=== PATIENT | female | born 1970 | race Caucasian/White ===

== ENCOUNTER 2019-07-17 11:27 | Emergency (ER) | payer SELFPAY ==
[~2019-07-17] VITALS: Ht 162 cm; Wt 85.2 kg
[~2019-07-17 11:27] MED LIST: BENZ100C18 PO; CEPH500C PO; CPR500T PO; DOXY100C2 PO; HCT25T PO; INSU100I14 SC; LEVAMIR INSULIN SC; LOVA20TA2 PO; MTF500T PO; NYST1POW15 TOP; RNT150T PO; [UNRECOGNIZED DRUG - OTHER] PO; estrogen; insulin pen
[2019-07-17] MEDS ORDERED: PROMETHAZINE INJ 25 MG/ML (PHENERGAN) AMP IVP ONE (11:45)
[2019-07-17] MEDS ORDERED: KETOROLAC 30 MG/ML VIAL IVP ONE (11:45)
[2019-07-17] MEDS ORDERED: NS IV 1000 ML 1,000 ML IV SCH (11:45)
--- NOTE | 2019-07-17 11:45 | ED General ---
General Chief Complaint: Dizziness/Syncope Stated Complaint: DIZZY / HEADACHE Nursing Triage Note: DIZZINESS ET LIGHT HEADED X1 WEEKS. SCHEDULED FOR A CT SCAN ON FRIDAY. VOMITING STARTING TODAY. Nursing Sepsis Screen: No Definite Risk Source of Information: Patient Exam Limitations: No Limitations History of Present Illness Date Seen by Provider: Jul 17, 2019 Time Seen by Provider: 11:43 Initial Comments To ER with c/o headache rated at 8/10 and dizziness x1 week. Is scheduled to have CT of the head on thursday 07/19. No trauma, no fevers. Timing/Duration: 1-2 Days Severity: Moderate Associated Systoms: Headaches Allergies and Home Medications Allergies Coded Allergies: Codeine (Unverified Allergy, Mild, 07/23/09) Penicillins (Unverified Allergy, Mild, 07/23/09) Uncoded Allergies: [id number] (SULFA (SULFONAMIDE ANTIBIOTICS)) (Allergy, Mild, 07/23/09) Home Medications Benzonatate 100 Mg Capsule, 1-2 EACH PO Q 4 - 6 HR PRN FOR COUGH Prescribed by: GENARO REID on 10/17/11943 Doxycycline Hyclate 100 Mg Capsule, 1 EACH PO BID FOR INFECTION Prescribed by: GENARO REID on 10/17/11943 Hydrochlorothiazide 25 Mg Tablet, 1 EACH PO DAILY, (Reported) Insulin Aspart 100 Unit/1 Ml Insuln.pen, 16 UNITS SC TID BEFORE MEALS, (Reported) Lovastatin 20 Mg Tablet, 1 EACH PO DAILY WITH SUPPER, (Reported) Meclizine HCl 25 Mg Tablet, 25 MG PO TID PRN for DIZZINESS Prescribed by: JOSUÉ GREEN on 07/17/19 1333 Metformin Hcl 500 Mg Tab, 1,000 MG PO BID, (Reported) [Levamir Insulin Pen] , 38 UNITS SC TID, (Reported) Patient Home Medication List Home Medication List Reviewed: Yes Review of Systems Review of Systems Constitutional: see HPI, dizziness EENTM: see HPI Respiratory: no symptoms reported Cardiovascular: no symptoms reported Genitourinary: no symptoms reported Skin: no symptoms reported Psychiatric/Neurological: See HPI, Headache Hematologic/Lymphatic: No Symptoms Reported Immunological/Allergic: no symptoms reported Past Vlbppqq-Lpzbbe-Yjnnmh Hx Patient Social History Alcohol Use: Denies Use Recreational Drug Use: Yes Drug of Choice: POT Smoking Status: Never a Smoker Recent Foreign Travel: No Contact w/Someone Who Travel: No Recent Infectious Disease Expo: No Immunizations Up To Date Date of Influenza Vaccine: Jun 11, 2011 Past Medical History Surgeries: Yes Section, Orthopedic, Tubal Ligation Respiratory: No Cardiac: No Headaches /Migraines Genitourinary: No Gastrointestinal: No Musculoskeletal: No Endocrine: Yes Diabetes, Insulin dep Cancer: No Psychosocial: No Integumentary: No Physical Exam Vital Signs Vital Signs - First Documented 07/17/19 11:32 Temp 36.7 Pulse 94 Resp 16 B/P (MAP) 173/83 (113) Pulse Ox 100 O2 Delivery Room Air Capillary Refill : Less Than 3 Seconds Height, Weight, BMI Height: '" Weight: lbs. oz. kg; 32.00 BMI Method:Stated General Appearance: No Apparent Distress, WD/WN Eyes: Bilateral Eye Normal Inspection, Bilateral Eye PERRL, Bilateral Eye Other (horizontal nystagmus noted) HEENT: PERRL/EOMI, TMs Normal, Normal ENT Inspection Neck: Full Range of Motion, Normal Inspection Respiratory: Normal Breath Sounds, No Accessory Muscle Use, No Respiratory Distress Cardiovascular: Regular Rate, Rhythm, Normal Peripheral Pulses Gastrointestinal: Normal Bowel Sounds, Non Tender, Soft Extremity: Normal Capillary Refill, Normal Inspection Neurologic/Psychiatric: Alert, Oriented x3 Skin: Normal Color, Warm/Dry Progress/Results/Core Measures Suspected Sepsis Recent Fever Within 48 Hours: No Infection Criteria Present: None New/Unexplained Altered Menta: No Sepsis Screen: No Definite Risk SIRS Temperature: Pulse: 94 Respiratory Rate: 16 Laboratory Tests 07/17/19 11:40: White Blood Count 12.1H Blood Pressure 173 /83 Mean: 113 Laboratory Tests 07/17/19 11:40: Creatinine 0.91, Platelet Count 430H, Total Bilirubin 0.2 Results/Orders Lab Results Laboratory Tests Test 07/17/19 11:40 07/17/19 12:48 Range/Units White Blood Count 12.1 H 4.3-11.0 10^3/uL Red Blood Count 4.44 4.35-5.85 10^6/uL Hemoglobin 11.9 11.5-16.0 G/DL Hematocrit 35 35-52 % Mean Corpuscular Volume 80 80-99 FL Mean Corpuscular Hemoglobin 27 25-34 PG Mean Corpuscular Hemoglobin Concent 34 32-36 G/DL Red Cell Distribution Width 14.0 10.0-14.5 % Platelet Count 430 H 130-400 10^3/uL Mean Platelet Volume 9.9 7.4-10.4 FL Neutrophils (%) (Auto) 56 42-75 % Lymphocytes (%) (Auto) 34 12-44 % Monocytes (%) (Auto) 8 0-12 % Eosinophils (%) (Auto) 2 0-10 % Basophils (%) (Auto) 1 0-10 % Neutrophils # (Auto) 6.8 1.8-7.8 X 10^3 Lymphocytes # (Auto) 4.1 H 1.0-4.0 X 10^3 Monocytes # (Auto) 1.0 0.0-1.0 X 10^3 Eosinophils # (Auto) 0.2 0.0-0.3 10^3/uL Basophils # (Auto) 0.1 0.0-0.1 10^3/uL Sodium Level 140 135-145 MMOL/L Potassium Level 4.5 3.6-5.0 MMOL/L Chloride Level 105 98-107 MMOL/L Carbon Dioxide Level 23 21-32 MMOL/L Anion Gap 12 5-14 MMOL/L Blood Urea Nitrogen 18 7-18 MG/DL Creatinine 0.91 0.60-1.30 MG/DL Estimat Glomerular Filtration Rate > 60 BUN/Creatinine Ratio 20 Glucose Level 109 H 70-105 MG/DL Calcium Level 9.4 8.5-10.1 MG/DL Corrected Calcium 9.2 8.5-10.1 MG/DL Total Bilirubin 0.2 0.1-1.0 MG/DL Aspartate Amino Transf (AST/SGOT) 19 5-34 U/L Alanine Aminotransferase (ALT/SGPT) 19 0-55 U/L Alkaline Phosphatase 60 40-136 U/L Total Protein 8.0 6.4-8.2 GM/DL Albumin 4.3 3.2-4.5 GM/DL Serum Test, Qualitative NEGATIVE NEGATIVE Urine Color YELLOW Urine Clarity SL CLOUDY Urine pH 5.5 5-9 Urine Specific [place] >=1.030 1.016-1.022 Urine Protein NEGATIVE NEGATIVE Urine Glucose (UA) NEGATIVE NEGATIVE Urine Ketones NEGATIVE NEGATIVE Urine Nitrite NEGATIVE NEGATIVE Urine Bilirubin NEGATIVE NEGATIVE Urine Urobilinogen 0.2 < = 1.0 MG/DL Urine Leukocyte Esterase TRACE NEGATIVE Urine RBC (Auto) 3+ H NEGATIVE Urine RBC 0-2 /HPF Urine WBC 2-5 /HPF Urine Squamous Epithelial Cells 2-5 /HPF Urine Crystals NONE /LPF Urine Bacteria FEW H /HPF Urine Casts NONE /LPF Urine Mucus NEGATIVE /LPF Urine Culture Indicated NO My Orders Orders - JOSUÉ GREEN CORE DRILLER Cbc With Automated Diff (07/17/19 11:35) Comprehensive Metabolic Panel (07/17/19 11:35) Ua Culture If Indicated (07/17/19 11:35) Ed Iv/Invasive Line Start (07/17/19 11:35) Hcg,Qualitative Serum (07/17/19 11:35) Ns Iv 1000 Ml (Sodium Chloride 0.9%) (07/17/19 11:45) Promethazine Injection (Phenergan Injec (07/17/19 11:45) Ct Angio Head/Neck (07/17/19 11:42) Ketorolac Injection (Toradol Injection) (07/17/19 11:45) Iohexol Injection (Omnipaque 350 Mg/Ml 1 (07/17/19 12:15) Received Contrast (Hold Metformin- Contr (07/17/19 12:15) Sodium Chloride Flush (Catheter Flush Sy (07/17/19 12:15) Ns (Ivpb) (Sodium Chloride 0.9% Ivpb Bag (07/17/19 12:15) Meclizine Tablet (Antivert Tablet) (07/17/19 13:00) Medications Given in ED Current Medications Medications Dose Ordered Sig/Syl Route Start Time Stop Time Status Last Admin Dose Admin Iohexol 100 ml ONCE ONCE IV 07/17/19 12:15 07/17/19 12:16 DC 07/17/19 12:44 75 ML Ketorolac Tromethamine 15 mg ONCE ONCE IVP 07/17/19 11:45 07/17/19 11:46 DC 07/17/19 11:48 15 MG Meclizine HCl 25 mg ONCE ONCE PO 07/17/19 13:00 07/17/19 13:01 DC 07/17/19 13:02 25 MG Promethazine HCl 25 mg ONCE ONCE IVP 07/17/19 11:45 07/17/19 11:46 DC 07/17/19 11:47 25 MG Sodium Chloride 10 ml NEEDED PRN IV 07/17/19 12:15 07/17/19 12:44 10 ML Sodium Chloride 100 ml ONCE ONCE IV 07/17/19 12:15 07/17/19 12:16 DC 07/17/19 12:44 80 ML Vital Signs/I&O 07/17/19 11:32 Temp 36.7 Pulse 94 Resp 16 B/P (MAP) 173/83 (113) Pulse Ox 100 O2 Delivery Room Air Capillary Refill : Less Than 3 Seconds Blood Pressure Mean: 113 POS Diagnostic Imaging Diagonstic Imaging: Xray, CT Comments NAME: [facility] REC#: [id number] PT STATUS: REG ER : 1970 PHYSICIAN: JOSUÉ GREEN APRN ADMIT DATE: 07/17/19/ER Draft POSDate of Exam:07/17/19 CT ANGIO HEAD/NECK PROCEDURE: CT angiography of the head and CT angiography of the neck with and without contrast. TECHNIQUE: Contiguous noncontrast images were obtained from the skull base through the vertex. After intravenous contrast administration, helical CT angiography of the neck was performed. Source data was reformatted into 3D MIP projections. Delayed post contrast acquisition was also obtained. Auto Exposure Controls were utilized during the CT exam to meet ALARA standards for radiation dose reduction. INDICATION: Lightheadedness, vomiting. COMPARISON: None available. FINDINGS: No intracranial hemorrhage. No intracranial mass, mass effect, midline shift, herniation, hydrocephalus, or extra-axial fluid collection. No definite CT evidence of an acute ischemic infarction. The paranasal sinuses are clear. The calvarium and extracalvarial soft tissues are unremarkable. No enhancing intracranial mass lesion. Muscles of mastication are unremarkable. Parapharyngeal fat is symmetric and well-maintained. The salivary glands are symmetric and unremarkable. The thyroid gland is unremarkable. No significant adenopathy within the neck. No apical pneumothorax. Scattered osseous degenerative changes without acute osseous abnormality. A three-vessel aortic arch is present. The large arterial structures of the head and neck are unremarkable without evidence of occlusion, aneurysm, pseudoaneurysm, or dissection. Large dural venous sinuses appear patent with the left asymmetrically small when compared to the right. IMPRESSION: No acute intracranial abnormality. Large arterial structures of the head and neck are unremarkable. Mild degenerative changes within the cervical spine. Dictated on workstation # [id number] Dict: 07/17/19 1256 Trans: 07/17/19 1305 [facility] [id number] Interpreted by: ZAYRA OLIVA MD Electronically signed by: Departure Impression Primary Impression: Vertigo Disposition: 01 HOME, SELF-CARE Condition: Stable Departure-Patient Inst. Decision time for Depature: 13:10 Referrals: [facility] [place]/Family) Primary Care Physician Patient Instructions: Vertigo (a Type of Dizziness) (DC) Scripts Meclizine HCl (Meclizine HCl) 25 Mg Tablet 25 MG PO TID PRN for DIZZINESS, #20 TAB Prov: JOSUÉ GREEN APRN 07/17/19 Work/School Note: Work Release Form Date Seen in the Emergency Department: Jul 17, 2019 Return to Work: Jul 19, 2019 JOSUÉ GREEN APRN Jul 17, 2019 11:45 POS
[2019-07-17 11:47] LABS: BASOPHILS # (AUTO) 0.1 10^3/uL (0.0-0.1); BASOPHILS % (AUTO) 1 % (0-10); EOSINOPHILS # (AUTO) 0.2 10^3/uL (0.0-0.3); EOSINOPHILS % (AUTO) 2 % (0-10); HEMATOCRIT 35 % (35-52); HEMOGLOBIN 11.9 G/DL (11.5-16.0); LYMPHOCYTES # (AUTO) 4.1 X 10^3 (1.0-4.0); LYMPHOCYTES % (AUTO) 34 % (12-44); MEAN CORPUSCULAR HEMOGLOBIN 27 PG (25-34); MEAN CORPUSCULAR HGB CONC 34 G/DL (32-36); MEAN CORPUSCULAR VOLUME 80 FL (80-99); MEAN PLATELET VOLUME 9.9 FL (7.4-10.4); MONOCYTES % (AUTO) 8 % (0-12); NEUTROPHILS # (AUTO) 6.8 X 10^3 (1.8-7.8); NEUTROPHILS % (AUTO) 56 % (42-75); PLATELET COUNT 430 10^3/uL (130-400); WHITE BLOOD COUNT 12.1 10^3/uL (4.3-11.0)
[2019-07-17 12:04] LABS: ALANINE AMINOTRANSFERASE 19 U/L (0-55); ALBUMIN 4.3 GM/DL (3.2-4.5); ALKALINE PHOSPHATASE 60 U/L (40-136); BILIRUBIN,TOTAL 0.2 MG/DL (0.1-1.0); BUN/CREATININE RATIO 20; CALCIUM 9.4 MG/DL (8.5-10.1); CARBON DIOXIDE 23 MMOL/L (21-32); CHLORIDE 105 MMOL/L (98-107); CREATININE SERUM 0.91 MG/DL (0.60-1.30); GFR ESTIMATED > 60; GLUCOSE 109 MG/DL (70-105); POTASSIUM 4.5 MMOL/L (3.6-5.0); SODIUM 140 MMOL/L (135-145)
[2019-07-17] MEDS ORDERED: IOHEXOL 350 MG/ML 100 ML (OMNIPAQUE 350) VIAL IV ONE (12:15)
[2019-07-17] MEDS ORDERED: HOLD METFORMIN - RECEIVED CONTRAST 20 ML VIAL IV SCH (12:15)
[2019-07-17] MEDS ORDERED: CATHETER FLUSH 10 ML SYR IV PRN (12:15)
[2019-07-17] MEDS ORDERED: NS 100 ML (IVPB) BAG IV ONE (12:15)
[2019-07-17] MEDS ORDERED: MECLIZINE 25 MG (ANTIVERT) TAB PO ONE (13:00)
--- NOTE | 2019-07-17 13:02 | NUR ---
TO ROOM TO GIVE MEDS IV FLUIDS NOT INFUSING UNABLE UNABLE TO FLUSH IV INFILITRATED . RESTARTED #22 R FOREARM.
--- NOTE | 2019-07-17 13:05 | Diagnostic Imaging Report ---
PROCEDURE: CT angiography of the head and CT angiography of the neck with and without contrast. TECHNIQUE: Contiguous noncontrast images were obtained from the skull base through the vertex. After intravenous contrast administration, helical CT angiography of the neck was performed. Source data was reformatted into 3D MIP projections. Delayed post contrast acquisition was also obtained. Auto Exposure Controls were utilized during the CT exam to meet ALARA standards for radiation dose reduction. INDICATION: Lightheadedness, vomiting. COMPARISON: None available. FINDINGS: No intracranial hemorrhage. No intracranial mass, mass effect, midline shift, herniation, hydrocephalus, or extra-axial fluid collection. No definite CT evidence of an acute ischemic infarction. The paranasal sinuses are clear. The calvarium and extracalvarial soft tissues are unremarkable. No enhancing intracranial mass lesion. Muscles of mastication are unremarkable. Parapharyngeal fat is symmetric and well-maintained. The salivary glands are symmetric and unremarkable. The thyroid gland is unremarkable. No significant adenopathy within the neck. No apical pneumothorax. Scattered osseous degenerative changes without acute osseous abnormality. A three-vessel aortic arch is present. The large arterial structures of the head and neck are unremarkable without evidence of occlusion, aneurysm, pseudoaneurysm, or dissection. Large dural venous sinuses appear patent with the left asymmetrically small when compared to the right. IMPRESSION: No acute intracranial abnormality. Large arterial structures of the head and neck are unremarkable. Mild degenerative changes within the cervical spine. Dictated by: Dictated on workstation # [id number]
[2019-07-17 13:08] LABS: BILIRUBIN,URINE NEGATIVE (NEGATIVE); CLARITY,URINE SL CLOUDY; COLOR,URINE YELLOW; GLUCOSE, URINE (UA) NEGATIVE (NEGATIVE); KETONES,URINE NEGATIVE (NEGATIVE); LEUKOCYTE ESTERASE ,URINE TRACE (NEGATIVE); NITRITE,URINE NEGATIVE (NEGATIVE); PH,URINE 5.5 (5-9); PROTEIN,URINE NEGATIVE (NEGATIVE)
[2019-07-17 13:16] LABS: BACTERIA,URINE FEW /HPF; RBC,URINE 0-2 /HPF
[2019-07-17] MEDS ORDERED: MECL-106 PO (13:33)
[2019-07-17 14:03] VITALS: BP 129/71
--- OUTSIDE RECORDS SUMMARY | 2019-08-12 10:49 | XMS REPORT | Continuity of Care Document ---
Demographics Preferred Language Unknown Marital Status Unknown Rastafari Affiliation Unknown Race Unknown Ethnic Group Unknown Author Organization Unknown Address Unknown Phone Unavailable Allergies Active Description Code Type Severity Reaction Onset Reported/Identified Relationship to Patient Clinical Status Yes codeine [id number] Drug Allergy Mild N/A 07/23/2009 Yes [id number] (SULFA (SULFONAMIDE ANTIBIOTI CS)) [id number] (SULFA (SULFONAMIDE ANTIBIOTICS)) Mild N/A 07/23/2009 Yes Penicillins [id number] Drug Aller gy Mild N/A 07/23/2009 Medications There is no data. Problems Date Dx Coded Attending Type Code Diagnosis Diagnosed By 07/21/2019 JOSUÉ GREEN APRN Ot E11 .9 TYPE 2 DIABETES MELLITUS WITHOUT COMPLIC 07/21/2019 JOSUÉ GREEN APRN Ot G43.909 MIGRAINE, UNSP, NOT INTRACTABLE, WITHOUT 07/21/2019 JOSUÉ GREEN APRN Ot R42 DIZZINESS AND GIDDINESS 07/21/2019 JOSUÉ GREEN APRN Ot R51 HEADACHE 07/21/2019 JOSUÉ GRENE APRN Ot Z79 .4 INTERMEDIATE (CURRENT) USE OF INSULIN 07/21/2019 JOSUÉ GREEN APRN Ot Z88 .0 ALLERGY STATUS TO PENICILLIN 07/21/2019 JOSUÉ GREEN APRN Ot Z88 .5 ALLERGY STATUS TO NARCOTIC AGENT STATUS 07/21/2019 JOSUÉ GREEN APRN Ot Z98.51 TUBAL LIGATION STATUS Procedures There is no data. Results Test Result Range CMP - 07/15/19 10:40 GLUCOSE 43 mg/dL 65-99 UREA NITROGEN (BUN) 23 mg/dL 7-25 CREATININE 0.80 mg/dL 0.50-1.10 eGFR NON-AFR. [place] 87 mL/min/1.73m2 > OR = 60 eGFR 101 mL/min/1.73m2 > OR = 60 BUN/CREATININE RATIO NOT APPLICABLE (calc) 6-22 SODIUM 141 mmol/L 135-146 POTASSIUM 4.3 mmol/L 3.5-5.3 CHLORIDE 106 mmol/L 98-110 CARBON DIOXIDE 24 mmol/L 20-32 CALCIUM 10.2 mg/dL 8.6-10.2 PROTEIN, TOTAL 7.9 g/dL 6.1-8.1 ALBUMIN 4.5 g/dL 3.6-5.1 GLOBULIN 3.4 g/dL (calc) 1.9-3.7 ALBUMIN/GLOBULIN RATIO 1.3 (calc) 1.0-2. 5 BILIRUBIN, TOTAL 0.2 mg/dL 0.2-1.2 ALKALINE PHOSPHATASE 68 U/L 33-115 AST 11 U/L 10-35 ALT 17 U/L 6-29 Complete blood count (CBC) with automate d white blood cell (WBC) differential - 07/17/19 11:40 Blood leukocytes automated count (number/volume) 12.1 10*3/uL 4.3-11.0 Blood erythrocytes automated count (number/volume) 4.44 10*6/uL 4.35-5.85 Venous blood hemoglobin measurement (mass/volume) 11.9 g/dL 11.5-16.0 Blood hematocrit (volume fraction) 35 % 35-52 Automated erythrocyte mean corpuscular volume 80 [ foz_us] 80-99 Automated erythrocyte mean corpuscular h emoglobin (mass per erythrocyte) 27 pg 25-34 Automated erythrocyte mean corpuscular h emoglobin concentration measurement (mass/volume) 34 g/dL 32-36 Automated erythrocyte distribution width ratio 14. 0 % 10.0- 14.5 Automated blood platelet count (count/volume) 430 10*3/uL 130-400 Automated blood platelet mean volume measurement 9.9 [foz_us] 7.4-10.4 Automated blood neutrophils/100 leukocytes 56 % 42-75 Automated blood lymphocytes/100 leukocytes 34 % 12-44 Blood monocytes/100 leukocytes 8 % 0-12 Automated blood eosinophils/100 leukocytes 2 % 0-10 Automated blood basophils/100 leukocytes 1 % 0-10 Blood neutrophils automated count (number/volume) 6.8 10*3 1.8-7.8 Blood lymphocytes automated count (number/volume) 4.1 10*3 1.0-4.0 Blood monocytes automated count (number/volume) 1. 0 10*3 0.0-1.0 Automated eosinophil count 0.2 10*3/uL 0 .0-0.3 Automated blood basophil count (count/volume) 0.1 10*3/uL 0.0-0.1 Comprehensive metabolic panel - 07/17/19 11:40 Serum or plasma sodium measurement (moles/volume) 140 mmol/L 135-145 Serum or plasma potassium measurement (moles/volume) 4.5 mmol/L 3.6-5.0 Serum or plasma chloride measurement (moles/volume) 105 mmol/L 98-107 Carbon dioxide 23 mmol/L 21-32 Serum or plasma anion gap determination (moles/volume) 12 mmol/L 5-14 Serum or plasma urea nitrogen measurement (mass/volume ) 18 mg/dL 7-18 Serum or plasma creatinine measurement (mass/volume) 0.91 mg/dL 0.60-1.30 Serum or plasma urea nitrogen/creatinine mass ratio 20 NRG Serum or plasma creatinine measurement w ith calculation of estimated glomerular filtration rate > NRG Serum or plasma glucose measurement (mass/volume) 109 mg/dL 70-105 Serum or plasma calcium measurement (mass/volume) 9.4 mg/dL 8.5-10.1 Serum or plasma total bilirubin measurement (mass/volu me) 0.2 mg/dL 0.1-1.0 Serum or plasma alkaline phosphatase debra surement (enzymatic activity/volume) 60 U/L 40-136 Serum or plasma aspartate aminotransfera se measurement (enzymatic activity/volume) 19 U/L 5-34 Serum or plasma alanine aminotransferase measurement (enzymatic activity/volume) 19 U/L 0-55 Serum or plasma protein measurement (mass/volume) 8.0 g/dL 6.4-8.2 Serum or plasma albumin measurement (mass/volume) 4.3 g/dL 3.2-4.5 CALCIUM CORRECTED 9.2 mg/dL 8.5-10.1 Serum or plasma choriogonadotropin (preg susan test) detection - 07/17/19 11:40 Serum or plasma choriogonadotropin ( test) de tection NEGATIVE NEGATIVE Complete urinalysis with reflex to cultu re - 07/17/19 12:48 Urine color determination YELLOW NRG Urine clarity determination SL CLOUDY N RG Urine pH measurement by test strip 5.5 5-9 Specific gravity of urine by test strip >= 1.016-1.022 Urine protein assay by test strip, semi-quantitative NEGATIVE NEGATIVE Urine glucose detection by automated test strip NE GATIVE NEGATIVE Erythrocytes detection in urine sediment by light micr oscopy 3+ NEGATIVE Urine ketones detection by automated test strip NE GATIVE NEGATIVE Urine nitrite detection by test strip NEGATIVE NEGATIVE Urine total bilirubin detection by test strip NEGA TIVE NEGATIVE Urine urobilinogen measurement by automated test strip (mass/volume) 0.2 mg/dL < = 1.0 Urine leukocyte esterase detection by dipstick TRA CE NEGATIVE Automated urine sediment erythrocyte cou nt by microscopy (number/high power field) [HPF] NRG Automated urine sediment leukocyte count by microscopy (number/high power field) [HPF] NRG Bacteria detection in urine sediment by light microsco py FEW NRG Squamous epithelial cells detection in u rine sediment by light microscopy 2-5 NRG Crystals detection in urine sediment by light microsco py NONE NRG Casts detection in urine sediment by light microscopy NONE NRG Mucus detection in urine sediment by light microscopy NEGATIVE NRG Complete urinalysis with reflex to culture NO NRG Encounters ACCT No. Visit Date/Time Discharge Status Pt. Type Provider Facility Loc./Unit Complaint [id number] 07/15/2019 10:40:00 Document Registration [id number] 07/17/2019 11:28:00 14:03:00 DIS Outpatient JOSUÉ GREEN APRN [facility] ER DIZZY / HEADACHE [id number] 07/14/2019 14:59:00 23:59:59 CLS Preadmit STEPHANIE MERAZ APRN [facility] RAD DIZZINESS
== END 2019-07-17 14:03 | disposition home or self-care (01) ==
LOC: EDUNIT# 11:27 → ER 11:28
DX: R42 Dizziness and giddiness (principal); G43.909 Migraine, unspecified, not intractable, without status migrainosus; E11.9 Type 2 diabetes mellitus without complications; Z88.5 Allergy status to narcotic agent; Z88.0 Allergy status to penicillin; Z79.4 Long term (current) use of insulin; Z98.51 Tubal ligation status
CPT/HCPCS: 36415; 70496; 70498; 80053; 81000; 84703; 85025; 96361; 96374; 96375

== ENCOUNTER → 2021-07-23 | Outpatient (CLI) | payer MEDICAID ==
[~2021-07-23] VITALS: Ht 162 cm; Wt 97.0 kg
[~2021-07-23] MED LIST changes: +MECL-149 PO; +REGADENOSON 0.4 MG/5 ML SYR (LEXISCAN) IV ONE
[2021-07-23] MEDS: CATHETER FLUSH 10 ML SYR IV PRN ×2 (08:28→09:31)
[2021-07-23 09:26] VITALS: BP 152/63
--- NOTE | 2021-07-23 11:26 | Cardiology Stress Test Report ---
Stress Test Report Date of Procedure/Referring: Date of Procedure: Jul 23, 2021 PCP Flor Huizar MD Admitting Physician [facility] [place] Indications: CP Baseline Heart Rate: 91 Baseline Blood Pressure: Blood Pressure Systolic: 152 Blood Pressure Diastolic: 63 Baseline Vitals Vital Signs Date Time Temp Pulse Resp B/P (MAP) Pulse Ox O2 Delivery O2 Flow Rate FiO2 07/23/21 09:26 91 16 152/63 (92) 95 Room Air Baseline EKG: Baseline EKG: NSR Summary After explaining the procedure to the patient, she signed a consent and then brought to the stress nuclear laboratory. Patient received 0.4 mg Lexiscan for stress test, ECG, heart rate and blood pressure were monitored continuously. Resting and stress dose of radio tracer were injected, imaging was acquired and reviewed in short axis, horizontal long axis and vertical long axis views. TID: 0.97 SSS: 6 SDS: 3 EF: 73 1. Patient tolerated Lexiscan well 2. Breast attenuation with mild decrease uptake involving the mid to apical anterior lateral wall with mild reversibility, could be secondary to breast attenuation 3. Normal left ventricular size, ejection fraction 73% 4. Overall nondiagnostic stress test EVA MARRERO MD Jul 23, 2021 11:26
== END ==
LOC: CARD 08:30
PROVIDERS: ATTEND Pediatrics
DX: R07.9 Chest pain, unspecified (principal)
CPT/HCPCS: 78452; 93017; A9502

== ENCOUNTER → 2021-08-28 | Outpatient (CLI) | payer MEDICAID ==
[~2021-08-28] MED LIST changes: +ATOR20TA66 PO; +INSU100I23 SQ; +INSU100I32 SQ; +LIRA0.6P3 SQ; +LISI40TA9 PO; +METF-399 PO; -REGADENOSON 0.4 MG/5 ML SYR (LEXISCAN) IV ONE
== END ==
LOC: LABNPT 08:17
PROVIDERS: ATTEND Internal Medicine Cardiovascular Disease
DX: Z20.822 Contact with and (suspected) exposure to COVID-19 (principal)
CPT/HCPCS: 87635

== ENCOUNTER 2021-08-29 08:09 | Day surgery (SDC) | payer MEDICAID ==
--- OUTSIDE RECORDS SUMMARY | 2021-07-27 08:01 | XMS REPORT | Clinical Summary ---
Author Author [facility] Organization [facility] Address Unknown Phone Unavailable Care Team Providers Care Manager Channel Name Role Phone Suzette Asif MD Unavailable No Pcp, Na PCP Unavailable Source Comments Some departments are not documenting in the electronic medical record. If you d o not see the information that you expected, contact Release of Information in [facility] [employer] Information Management department at [phone] for further assistan ce in locating additional records.[facility] Allergies Comments Active Allergy Reactions Severity Noted Date Codeine UNKNOWN 12/19/2010 Penicillins UNKNOWN 12/19/2010 Sulfa (Sulfonamide UNKNOWN 12/19/2010 Antibiotics) Medications End Date Status Medication Sig Dispensed Refills Start Date Active metformin (GLUCOPHAGE) Take 1 Tab by 180 Tab 3 0 500 mg PO tablet mouth twice 1 daily. Active lisinopril (PRINIVIL; Take 2 Tabs 90 Tab 3 12/09 ZESTRIL) 5 mg PO tablet by mouth 1 daily. Active insulin aspart (NOVOLOG) Inject 14 3 box 3 0 100 unit/mL SC Units into 1 area(s) as directed three times daily with meals. Active insulin detemir(+) Inject 38 30 mL 3 12/21/ 01 (LEVEMIR) 100 unit/mL SC Units into 1 Soln area(s) as directed twice daily before meals. Active hydrochlorothiazide Take 1 Tab by 90 Tab 3 12/09 (HYDRODIURIL) 12.5 mg PO mouth daily. 1 Tab tablet Active aspirin EC 81 mg PO Take 1 Tab by 90 Tab 3 12/09 tablet mouth daily. 1 Active lovastatin(+) (MEVACOR) Take 1 Tab by 90 Tab 3 20 mg PO tablet mouth at 1 bedtime daily. Active Problems Problem Noted Date Migraine, variant 12/20/2010 Immunizations Name Administration Dates Next Due Tdap Vaccine 11/27/2013 Surgical History Surgery Date Site/Laterality Comments SECTION Medical History Medical History Date Comments Seizure disorder (HCC) Migraine headache DM (diabetes mellitus), type 2 (HCC) Family History Medical History Relation Name Comments Heart Disease Father Cancer Maternal Aunt breast Cancer Maternal breast Grandmother Relation Name Status Comments Father Maternal Aunt Maternal Grandmother Social History Date Tobacco Use Types Packs/Day Years Used Never Smoker Comments Alcohol Use Standard Drinks/Week "casual drinker" Yes 0 (1 standard drink = 0.6 o z pure alcohol) Alcohol Habits Answer Date Recorded How often do you have a drink containing alcohol? No t asked How many drinks containing alcohol do you have on No t asked a typical day when you are drinking? How often do you have six or more drinks on one Not asked occasion? Comment: "casual drinker" 12/19/2010 Sex Assigned at Date Recorded Not on file Last Filed Vital Signs Reading Time Taken Comments Vital Sign 148/76 11/27/2013 8:43 PM CDT Blood Pressure 91 11/27/2013 8:43 PM CDT Pulse 37 C (98.6 F) 11/27/2013 8:43 PM CDT Temperature - - Respiratory Rate 97% 11/27/2013 8:43 PM CDT Oxygen Saturation - - Inhaled Oxygen Concentration 97.5 kg (215 lb) 12/19/2010 6:00 PM CDT Weight 160 cm (5' 3") 12/19/2010 6:00 PM CDT Height 38.09 12/19/2010 6:00 PM CDT Body Mass Index Plan of Treatment Health Maintenance Due Date Last Done Comments HIV SCREENING 1986 HEPATITIS C SCREENING 1989 PHYSICAL (COMPREHENSIVE) 1989 EXAM CERVICAL CANCER SCREENING 01/27/1992 BREAST CANCER SCREENING 2011 COLORECTAL CANCER 2021 SCREENING SHINGLES RECOMBINANT 2021 VACCINE (1 of 2) INFLUENZA VACCINE 03/11/2021 DTAP/TDAP VACCINES (2 - 11/28/2023 11/27/2013 Td or Tdap) Results Not on filefrom Last 3 Months 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 Care Teams Start Date End Date Manager Channel Relationship Specialty 11/27/13 No Pcp, Na PCP - General 12/19/10 Suzette Asif MD Neurology [address] [place], [place] [id number]
[2021-07-27 08:40] VITALS: BP 146/91
[2021-07-27 09:03] LABS: HEMATOCRIT 39 % (35-52); HEMOGLOBIN 12.5 g/dL (11.5-16.0); MEAN CORPUSCULAR HEMOGLOBIN 28 pg (25-34); MEAN CORPUSCULAR HGB CONC 32 g/dL (32-36); MEAN CORPUSCULAR VOLUME 85 fL (80-99); PLATELET COUNT 395 10^3/uL (130-400); WHITE BLOOD COUNT 11.3 10^3/uL (4.3-11.0)
--- NOTE | 2021-07-27 09:07 | Diagnostic Imaging Report ---
EXAMINATION: Chest radiograph, portable AP view. DATE: 07/27/2021 8:44 AM INDICATION: 51-year-old female, abnormal stress test. Chest pain. COMPARISON: None. FINDINGS: Heart size and mediastinal contours are unchanged. There is no identified pneumothorax. There is no large pleural effusion. There is no identified focal airspace consolidation. IMPRESSION: No identified acute cardiopulmonary abnormality. Dictated by: Dictated on workstation # [id number]
[2021-07-27 09:12] LABS: PROTHROMBIN TIME PATIENT 13.2 SEC (12.2-14.7)
[2021-07-27 09:20] LABS: ALBUMIN 4.1 GM/DL (3.2-4.5); BILIRUBIN,TOTAL 0.4 MG/DL (0.1-1.0); CALCIUM 8.9 MG/DL (8.5-10.1); CREATININE SERUM 1.02 MG/DL (0.60-1.30); POTASSIUM 4.7 MMOL/L (3.6-5.0); TOTAL PROTEIN 7.7 GM/DL (6.4-8.2)
[2021-08-29] VITALS (10 sets, daily range): BP systolic 125–185; BP diastolic 67–98
[~2021-08-29] VITALS: Ht 162.6 cm; Wt 95.3 kg
[~2021-08-29 08:09] MED LIST changes: +HEParin (CATH LAB) 2,000 ML IV ONE; +LIDOCAINE 1% INJ 20 ML VIAL ONE; +NS IV 1000 ML 1,000 ML IV SCH; +NS IV 1000 ML 1,000 ML ONE
[2021-08-29] MEDS ORDERED: LIDOCAINE 1% INJ 20 ML VIAL ONE (08:12)
[2021-08-29] MEDS ORDERED: NS IV 1000 ML 1,000 ML ONE (08:12)
[2021-08-29] MEDS ORDERED: HEParin (CATH LAB) 2,000 ML IV ONE (08:12)
--- OUTSIDE RECORDS SUMMARY | 2021-08-29 08:12 | XMS REPORT | Clinical Summary ---
Author Author [facility] Organization [facility] Address Unknown Phone Unavailable Care Team Providers Care Remote Sensing Analyst Name Role Phone Suzette Asif MD Unavailable No Pcp, Na PCP Unavailable Source Comments Some departments are not documenting in the electronic medical record. 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 Care Teams Start Date End Date Remote Sensing Analyst Relationship Specialty 11/27/13 No Pcp, Na PCP - General 12/19/10 Suzette Asif MD Neurology [address], [place] [id number]
[2021-08-29] MEDS ORDERED: NS IV 1000 ML 1,000 ML IV SCH ×2 (08:15→11:00)
[2021-08-29 08:48] LABS: HEMATOCRIT 41 % (35-52); HEMOGLOBIN 12.8 g/dL (11.5-16.0); MEAN CORPUSCULAR HEMOGLOBIN 27 pg (25-34); MEAN CORPUSCULAR HGB CONC 31 g/dL (32-36); MEAN CORPUSCULAR VOLUME 85 fL (80-99); MEAN PLATELET VOLUME 10.6 fL (9.0-12.2); PLATELET COUNT 464 10^3/uL (130-400); WHITE BLOOD COUNT 11.3 10^3/uL (4.3-11.0)
--- NOTE | 2021-08-29 09:03 | Diagnostic Imaging Report ---
INDICATION: Chest pain. COMPARISON: 07/27/2021. FINDINGS: The portable chest shows the lungs to be well-aerated and clear. The heart is not enlarged. No pulmonary edema. No pneumothorax or pleural effusion. No bony abnormalities. IMPRESSION: Negative portable chest. Dictated by: Dictated on workstation # [id number]
[2021-08-29 09:05] LABS: INR 0.9 (0.8-1.4); PROTHROMBIN TIME PATIENT 12.9 SEC (12.2-14.7)
[2021-08-29 09:10] LABS: ALBUMIN 3.9 GM/DL (3.2-4.5); BILIRUBIN,TOTAL 0.3 MG/DL (0.1-1.0); CALCIUM 9.1 MG/DL (8.5-10.1); CREATININE SERUM 0.97 MG/DL (0.60-1.30); POTASSIUM 5.3 MMOL/L (3.6-5.0); TOTAL PROTEIN 8.3 GM/DL (6.4-8.2)
[2021-08-29] MEDS ORDERED: fentaNYL INJ 100 MCG/2 ML AMP ONE (10:12)
[2021-08-29] MEDS ORDERED: MIDAZOLAM 5 MG/5 ML (VERSED) VIAL ONE (10:12)
--- NOTE | 2021-08-29 10:34 | Conscious Sedation/ASA ---
Conscious Sedation Pre-Proced Time 10:34 ASA Score 3 For ASA 3 and 4: Consider anesthesia and medical clearance. Also, for patients with a history of failed moderate sedation consider anesthesia. Airway Lungs Heart ASA score ASA 1: a normal healthy patient ASA 2: a patient with a mild systemic disease (mid diabetes, controlled hypertension, obesity x ASA 3: a patient with a severe systemic disease that limits activity (angina, COPD, prior Myocardial infarction) ASA 4: a patient with an incapacitating disease that is a constant threat to life (CHF, renal failure) ASA 5: a moribund patient not expected to survive 24 hrs. (ruptured aneurysm) ASA 6: a declared brain- patient whose organs are being harvested. For emergent operations, add the letter E after the classification Mallampati Classification Grade 3 Sedation Plan Analgesia, Amnesia, Plan communicated to team members, Discussed options with patient/fam, Discussed risks with patient/fam The patient is an appropriate candidate to undergo the planned procedure, sedation, and anesthesia. The patient immediately re-assessed prior to indication. EVA MARRERO MD Aug 29, 2021 10:34
[2021-08-29] MEDS ORDERED: METF-399 PO (10:52)
--- NOTE | 2021-08-29 10:52 | Discharge Inst-Post CATH ---
Discharge Inst-CATH/EP Problems Reviewed?: Yes Post Cardiac Cath/EP D/C Inst Follow Up/Plan Hold metformin for [address] Gray's office in 2 to 4 weeks <b>CARDIAC CATH/EP PROCEDURE DISCHARGE INSTRUCTIONS</b> ACTIVITY * Go Home directly and rest. * Limit activity of the leg (or wrist if it was used) for 7 days including aerobics, swimming, jogging, bicycling, etc. * Restrict stair-climbing for 7 days if possible, if not, climb up with your non-cath leg, then bring together on the same step. * Avoid lifting, pushing, pulling or excessive movement of the affected extremity for 7 days. * Customary sexual activity may be resumed after 2 days-use caution not to use a position that strains or causes pain to the affected extremity. * No driving for 24 hours. * NO SMOKING. * Avoid straining for bowel movements for 7 days. * Gentle walking on level ground is allowed. * Returning to work will depend on the type of procedure and the results. Your doctor will discuss this with you. CALL YOUR DOCTOR FOR ANY OF THE FOLLOWING: *If bleeding from the puncture site occurs- Apply gentle pressure to site with clean cloth and call your doctor or EMS. * If a knot or lump forms under the skin, increases in size, or causes pain. * If bruising appears to be worsening or moving further down your leg instead of disappearing. * Temperature above 101 F. CARE OF YOUR GROIN INCISION; * Bruising or purple discoloration of the skin near the puncture site is common. * You may shower only, no bathtub bathing for 5 days. Be careful to avoid slipping as your leg may feel stiff. * If a closure device was used on your femoral artery, please see the attached guide regarding care of the device and your leg. * Leave dressing on FOR 24 hours. CARE OF YOUR WRIST INCISION; * Bruising or purple discoloration of the skin near the puncture site is common. * You may shower. * DO NOT submerge wrist. * Leave dressing on FOR 24 hours. EVA GRAY MD Aug 29, 2021 10:52
--- NOTE | 2021-08-29 10:55 | Cardiac Cath Report ---
Cardiac Cath Report Physician (s)/Accounts Supervisor (s) Physician EVA MARRERO MD Pre-Procedure Diagnosis Pre-Procedure Diagnosis: Coronary artery disease Post-Procedure Note Procedure Start Date: Aug 29, 2021 Name of Procedure: Left heart catheterization Findings/Procedure Note PROCEDURE NOTE: 51-year-old lady with history of diabetes mellitus, hypertension, has been having chest pain, had an abnormal stress test, scheduled for cardiac catheterization possible PTCA. After explaining the procedure to the patient, all pros and cons were explained, all questions were answered. The patient signed the consent and then she was placed on the cardiac catheterization laboratory. Groin was prepped SL fashion local anesthesia was used. Sheath placed in the right femoral artery. Florencio right and left catheter were used to access the coronary system. Florencio right catheter was prolapsed to the left ventricular cavity, pressure was measured, pullback LV to aorta was done. At the end of the procedure the sheath was removed. Closure device was deployed FINDINGS: Hemodynamics LV 139/18, end-diastolic pressure of 18 Aorta 139/80 mean of 107 ANATOMY: Left Main is free of obstructive disease Left Anterior Descending is tortuous artery with mild disease, nonobstructive disease Left Circumflex has mild disease nonobstructive disease Right Coronary Artery is dominant artery with no obstructive disease LV Gram was not done, pressure was measured CONCLUSION: 1. Tortuous LAD system with mild coronary artery disease nonobstructive disease, otherwise nonobstructive coronary system 2. Mildly elevated left ventricular end-diastolic pressure DISCUSSION AND RECOMMENDATION: Medical therapy is recommended no intervention is recommended Anesthesia Type: Conscious Sedation Estimated blood loss (mL): 15 ml Contrast Amount: 36 ml Total Radiation Dose: 350 mGy Post-Procedure Diagnosis Post-operative diagnosis: Chest pain Coronary artery disease Hypertension Hyperlipidemia EVA MARRERO MD Aug 29, 2021 10:55
[2021-08-29] MEDS ORDERED: PATIENT MAY USE OWN MEDS, ALL PO SCH (11:00)
== END 2021-08-29 16:15 ==
LOC: CATH 08:09 → SDC 11:31 → CATH 16:15
PROVIDERS: ATTEND Internal Medicine Cardiovascular Disease
DX: I25.10 Atherosclerotic heart disease of native coronary artery without angina pectoris (principal); I10 Essential (primary) hypertension; E78.5 Hyperlipidemia, unspecified; E11.9 Type 2 diabetes mellitus without complications; R07.9 Chest pain, unspecified
CPT/HCPCS: 71045 ×2; 80053 ×2; 80061 ×2; 85027 ×2; 85610 ×2; 85730 ×2; 87081; 93458; C1760; C1894; 36415

== ENCOUNTER 2022-09-04 03:24 | Emergency (ER) | payer MEDICARE, MEDICAID ==
[~2022-09-04] VITALS: Ht 163 cm; Wt 97.0 kg
[~2022-09-04 03:24] MED LIST changes: -HEParin (CATH LAB) 2,000 ML IV ONE; -LIDOCAINE 1% INJ 20 ML VIAL ONE; -NS IV 1000 ML 1,000 ML IV SCH; -NS IV 1000 ML 1,000 ML ONE
--- NOTE | 2022-09-04 03:50 | ED General ---
General Chief Complaint: General Problems/Pain Stated Complaint: DIZZY,LIGHT HEADED,HIGH BLOOD SUGAR 264,SOB Nursing Triage Note: TO ED VIA POV AND AMBULATORY TO ROOM 5 WITH C/O "FEELING BAD. REALLY, REALLY, REALLY BAD". STATES SHE FELT HER BREATHING WAS OFF AND LOW BLOOD SUGAR. BLOOD SUGAR LAST NIGHT WAS IN 400s SO SHE TOOK 28 UNITS HUMALOG AND BLOOD SUGAR DIDN'T GO DOWN VERY MUCH SO SHE TOOK 18 MORE UNITS OF HUMALOG. FELT DIZZY AND LIGHTHEADED WHILE LAYING DOWN. LAST BLOOD SUGAR CHECK AT HOME WAS 264 MG/DL. PT HAS MANY COMPLAINTS. Source of Information: Patient Exam Limitations: No Limitations History of Present Illness Date Seen by Provider: Sep 04, 2022 Time Seen by Provider: 03:40 Initial Comments Patient is a 52-year-old female who presents to the emergency department today with a chief complaint of feeling "bad". Patient states that she was trying to sleep in the middle of the night, she lives alone, she states that she started feeling a little short of breath. She felt "off". It sounds like she became more and more anxious about this feeling and decided to get in the car and drive 5 blocks to her son's house. She describes feeling dizzy and lightheaded. She thought that her blood sugar was low but it was up in the 400 range. She took some insulin her blood pressure came down into the 200s so she took more insulin. Subsequently presents here for evaluation. She denies headache, vision changes, speech difficulty. No difficulty swallowing. No numbness weakness or tingling. No chest pain. She does feel little short of breath. No abdominal pain, nausea. She does have diarrhea. No burning with urination or increased frequency. No swelling in her legs. She just saw her primary care physician, Dr. Fritz Chow about a week ago, she got a COVID booster and Pneumovax. Her diabetes medication was changed. She states 2 weeks ago when she refilled her antihypertensive medication one of her pills looked different than usual. She states she is very compliant with her daily medications. No recent sick contacts. No symptoms of illness. Timing/Duration: 1 Hour Severity: Moderate Associated Systoms: Shortness of Air, Weakness, Other (dizzy) Allergies and Home Medications Allergies Coded Allergies: Penicillins (Unverified Allergy, Mild, 07/23/09) codeine (Unverified Allergy, Mild, 07/23/09) Sulfa (Sulfonamide Antibiotics) (Verified Allergy, Unknown, 09/04/22) Patient Home Medication List Home Medication List Reviewed: Yes Atorvastatin Calcium (Atorvastatin Calcium) 20 Mg Tablet, 20 MG PO DAILY, (Reported) Entered as Reported by: JUN RUIZ on 07/27/21851 Insulin Degludec (Tresiba Flextouch U-100) 100 Unit/1 Ml Insuln.pen, 52 UNIT SQ DAILY, (Reported) Entered as Reported by: JUN RUIZ on 07/27/21 08 Insulin Lispro (Humalog Kwikpen) 100 Unit/1 Ml Insuln.pen, 26 UNIT SQ TID, (Reported) Entered as Reported by: JUN RUIZ on 07/27/21851 Liraglutide (Victoza 3-Kashif) 0.6 Mg/0.1 Ml Pen.injctr, 0.6 MG SQ DAILY, (Reported) Entered as Reported by: JUN RUIZ on 07/27/21851 Lisinopril (Lisinopril) 40 Mg Tablet, 40 MG PO DAILY, (Reported) Entered as Reported by: JUN RUIZ on 07/27/21851 Metformin HCl (Metformin HCl) 1,000 Mg Tablet, 1,000 MG PO BID Prescribed by: EVA MARRERO on 08/29/21 1052 Review of Systems Review of Systems Constitutional: see HPI, dizziness, malaise EENTM: no symptoms reported Respiratory: short of breath Cardiovascular: no symptoms reported Gastrointestinal: no symptoms reported Genitourinary: no symptoms reported Musculoskeletal: no symptoms reported Skin: no symptoms reported Psychiatric/Neurological: Weakness (generalized) All Other Systems Reviewed Negative Unless Noted: Yes Past Mnmirvg-Yccsgo-Xpljyf Hx Patient Social History Tobacco Use?: No Substance use?: No Alcohol Use?: No Immunizations Up To Date Influenza Vaccine Up-to-Date: Yes; Up-to-Date Past Medical History Surgeries: Yes Section, Orthopedic, Tubal Ligation Respiratory: No Cardiac: No Hypertension Headaches /Migraines Genitourinary: No Gastrointestinal: No Musculoskeletal: No Endocrine: Yes Diabetes, Insulin dep Cancer: No Psychosocial: No Integumentary: No Physical Exam Vital Signs Vital Signs - First Documented 09/04/22 03:34 Temp 36.0 Pulse 85 Resp 16 B/P (MAP) 234/113 (153) Pulse Ox 98 O2 Delivery Room Air Capillary Refill : Less Than 3 Seconds Height, Weight, BMI Height: '" Weight: lbs. oz. kg; 36.00 BMI Method:Stated General Appearance: No Apparent Distress, WD/WN Eyes: Bilateral Eye Normal Inspection, Bilateral Eye PERRL, Bilateral Eye EOMI HEENT: PERRL/EOMI, Pharynx Normal, Moist Mucous Membranes Neck: Full Range of Motion, Normal Inspection Respiratory: Lungs Clear, Normal Breath Sounds, No Accessory Muscle Use, No Respiratory Distress Cardiovascular: Regular Rate, Rhythm, Normal Peripheral Pulses Gastrointestinal: Non Tender, Soft Extremity: Normal Capillary Refill, Normal Inspection, Normal Range of Motion, No Calf Tenderness Neurologic/Psychiatric: Alert, Oriented x3, No Motor/Sensory Deficits, Normal Mood/Affect, consulting practice director II-XII Norm as Tested; No Disoriented, No EOM Palsy, No Facial Droop, No Motor Weakness, No Sensory Deficit; Other (normal finger to nose; no drift x4; tongue midline; ) Skin: Normal Color, Warm/Dry Progress/Results/Core Measures Suspected Sepsis SIRS Temperature: Pulse: 85 Respiratory Rate: 16 Laboratory Tests 09/04/22 04:45: White Blood Count 13.6H Blood Pressure 234 /113 Mean: 153 Laboratory Tests 09/04/22 04:45: Creatinine 1.08, Platelet Count 377 Results/Orders Lab Results Laboratory Tests Test 09/04/22 03:38 09/04/22 04:45 09/04/22 04:51 Range/Units Glucometer 193 H 70-110 MG/DL White Blood Count 13.6 H 4.3-11.0 10^3/uL Red Blood Count 4.22 3.80-5.11 10^6/uL Hemoglobin 11.6 11.5-16.0 g/dL Hematocrit 36 35-52 % Mean Corpuscular Volume 85 80-99 fL Mean Corpuscular Hemoglobin 28 25-34 pg Mean Corpuscular Hemoglobin Concent 33 32-36 g/dL Red Cell Distribution Width 13.1 10.0-14.5 % Platelet Count 377 130-400 10^3/uL Mean Platelet Volume 10.2 9.0-12.2 fL Immature Granulocyte % (Auto) 1 % Neutrophils (%) (Auto) 47 42-75 % Lymphocytes (%) (Auto) 40 12-44 % Monocytes (%) (Auto) 8 0-12 % Eosinophils (%) (Auto) 3 0-10 % Basophils (%) (Auto) 1 0-10 % Neutrophils # (Auto) 6.4 1.8-7.8 10^3/uL Lymphocytes # (Auto) 5.4 H 1.0-4.0 10^3/uL Monocytes # (Auto) 1.1 H 0.0-1.0 10^3/uL Eosinophils # (Auto) 0.3 0.0-0.3 10^3/uL Basophils # (Auto) 0.1 0.0-0.1 10^3/uL Immature Granulocyte # (Auto) 0.1 0.0-0.1 10^3/uL Sodium Level 138 135-145 MMOL/L Potassium Level 4.8 3.6-5.0 MMOL/L Chloride Level 102 98-107 MMOL/L Carbon Dioxide Level 25 21-32 MMOL/L Anion Gap 11 5-14 MMOL/L Blood Urea Nitrogen 19 H 7-18 MG/DL Creatinine 1.08 0.60-1.30 MG/DL Estimat Glomerular Filtration Rate 62 BUN/Creatinine Ratio 18 Glucose Level 223 H 70-105 MG/DL Calcium Level 9.6 8.5-10.1 MG/DL Smear Scan YES Urine Color YELLOW Urine Clarity CLEAR Urine pH 6.0 5-9 Urine Specific [place] 1.020 1.016-1.022 Urine Protein NEGATIVE NEGATIVE Urine Glucose (UA) 1+ H NEGATIVE Urine Ketones NEGATIVE NEGATIVE Urine Nitrite NEGATIVE NEGATIVE Urine Bilirubin NEGATIVE NEGATIVE Urine Urobilinogen 0.2 < = 1.0 MG/DL Urine Leukocyte Esterase NEGATIVE NEGATIVE Urine RBC (Auto) NEGATIVE NEGATIVE Urine RBC NONE /HPF Urine WBC NONE /HPF Urine Crystals NONE /LPF Urine Bacteria NEGATIVE /HPF Urine Casts NONE /LPF Urine Mucus NEGATIVE /LPF Urine Culture Indicated NO My Orders Orders - MIKE JAMES MD Ed Iv/Invasive Line Start (09/04/22 03:50) Cbc With Automated Diff (09/04/22 03:50) Basic Metabolic Panel (09/04/22 03:50) Ua Culture If Indicated (09/04/22 03:50) Labetalol Injection (Normodyne Injection (09/04/22 04:00) Ondansetron Oral Dissolve Tab (Zofran (09/04/22 04:37) Accucheck Stat ONCE (09/04/22 05:22) Ondansetron Injection (Zofran Injectio (09/04/22 05:45) Medications Given in ED Current Medications Medications Dose Ordered Sig/Syl Route Start Time Stop Time Status Last Admin Dose Admin Ondansetron HCl 4 mg ONCE ONCE IVP 09/04/22 05:45 09/04/22 05:46 DC 09/04/22 05:45 4 MG Vital Signs/I&O 09/04/22 09/04/22 03:34 03:48 Temp 36.0 Pulse 85 Resp 16 B/P (MAP) 234/113 (153) Pulse Ox 98 O2 Delivery Room Air Room Air Capillary Refill : Less Than 3 Seconds Blood Pressure Mean: 153 Progress Note : Time: 05:42 Progress Note Patient seen and evaluated by me, 52-year-old with a history of hypertension and diabetes. Evaluation today includes physical exam with NIH score calculation, CBC, basic metabolic panel and urinalysis. Differential diagnosis based on history and physical exam, hypertensive urgency versus emergency, occult infection, DKA, encephalopathy. Patient's physical exam is generally unremarkable, NIH is 0. CBC shows a mild leukocytosis at 13,000 BMP shows slight hyperglycemia. UA does not demonstrate infection. I had ordered Zofran which was given orally prior to IV placement. I have also ordered 10 of labetalol however once patient's IV was established her blood pressure came down from a systolic of 205 into the 160s. Patient started feeling much better. She still complains of a little bit of nausea. Maintains no headache, chest pain, SOB. no clinical or objective findings to warrant further care in the emergency department. She looks much better her color is better. She is comfortable with discharge to home. Given a second dose of Zofran for her residual nausea. Return precautions given. Departure Impression Primary Impression: Hypertensive urgency Additional Impression: Hyperglycemia due to diabetes mellitus Disposition: HOME, SELF-CARE Condition: Improved Departure-Patient Inst. Decision time for Depature: 05:55 Referrals: [facility] (PCP/Family) Primary Care Physician Patient Instructions: High Blood Pressure in Adults Add. Discharge Instructions: Continue taking your medications daily as prescribed by Dr. Chow. Monitor yourself for worsening symptoms such as fever, cough, vomiting. If any of these develop please return to the emergency room for reevaluation. Please call Dr. Chow's office today regarding your recent change to Trulicity. She may want to change that medication back. I have sent a copy of your ER visit to her office for her review today. Copy Copies To 1: MARGUERITE ANGUIANO DO Copies To 2: FRITZ CHOW MD, KATHRYN M MD Sep 04, 2022 03:50
[2022-09-04] MEDS ORDERED: ONDANSETRON 4 MG (ZOFRAN) ORAL DISSOLVE TAB PO STA (04:37)
[2022-09-04 04:59] LABS: BASOPHILS # (AUTO) 0.1 10^3/uL (0.0-0.1); BASOPHILS % (AUTO) 1 % (0-10); EOSINOPHILS # (AUTO) 0.3 10^3/uL (0.0-0.3); EOSINOPHILS % (AUTO) 3 % (0-10); HEMATOCRIT 36 % (35-52); HEMOGLOBIN 11.6 g/dL (11.5-16.0); LYMPHOCYTES # (AUTO) 5.4 10^3/uL (1.0-4.0); LYMPHOCYTES % (AUTO) 40 % (12-44); MEAN CORPUSCULAR HEMOGLOBIN 28 pg (25-34); MEAN CORPUSCULAR HGB CONC 33 g/dL (32-36); MEAN CORPUSCULAR VOLUME 85 fL (80-99); MEAN PLATELET VOLUME 10.2 fL (9.0-12.2); MONOCYTES # (AUTO) 1.1 10^3/uL (0.0-1.0); MONOCYTES % (AUTO) 8 % (0-12); NEUTROPHILS # (AUTO) 6.4 10^3/uL (1.8-7.8); NEUTROPHILS % (AUTO) 47 % (42-75); PLATELET COUNT 377 10^3/uL (130-400); WHITE BLOOD COUNT 13.6 10^3/uL (4.3-11.0)
[2022-09-04 05:01] LABS: BILIRUBIN,URINE NEGATIVE (NEGATIVE); CLARITY,URINE CLEAR; COLOR,URINE YELLOW; GLUCOSE, URINE (UA) 1+ (NEGATIVE); KETONES,URINE NEGATIVE (NEGATIVE); LEUKOCYTE ESTERASE ,URINE NEGATIVE (NEGATIVE); NITRITE,URINE NEGATIVE (NEGATIVE); PROTEIN,URINE NEGATIVE (NEGATIVE)
[2022-09-04] MEDS: LABETALOL HCL 20 MG/4 ML VIAL IV ONE ×2 (05:03→05:43)
[2022-09-04 05:14] LABS: BACTERIA,URINE NEGATIVE /HPF
[2022-09-04 05:23] LABS: SMEAR SCAN COMMENT YES
[2022-09-04 05:29] LABS: CALCIUM 9.6 MG/DL (8.5-10.1); CREATININE SERUM 1.08 MG/DL (0.60-1.30); POTASSIUM 4.8 MMOL/L (3.6-5.0)
[2022-09-04] MEDS ORDERED: ONDANSETRON 4 MG/2 ML (SDV) Z0FRAN IVP ONE (05:45)
[2022-09-04 06:35] VITALS: BP 147/78
== END 2022-09-04 06:35 | disposition home or self-care (01) ==
LOC: EDUNIT# 03:24 → ER 03:29
DX: I16.0 Hypertensive urgency (principal); E11.65 Type 2 diabetes mellitus with hyperglycemia; I10 Essential (primary) hypertension; D72.829 Elevated white blood cell count, unspecified; Z79.4 Long term (current) use of insulin
CPT/HCPCS: 36415; 80048; 81000; 82947; 85025

== ENCOUNTER 2022-10-21 05:38 | Outpatient (CLI) | payer MEDICARE, MEDICAID ==
[~2022-10-21] VITALS: Ht 162.5 cm; Wt 97.3 kg
== END 2022-10-21 11:14 | disposition home or self-care (01) ==
LOC: PREOP 05:38
PROVIDERS: ATTEND Specialist
DX: Z01.818 Encounter for other preprocedural examination (principal)

== ENCOUNTER 2022-10-25 08:20 | Day surgery (SDC) | payer MEDICARE, MEDICAID ==
[~2022-10-25] VITALS: Ht 162.5 cm; Wt 97.3 kg
[2022-10-25] MEDS ORDERED: POVIDONE (BETADINE) OPHTH SOLN 5% 30 ML OP ONE (08:30)
[2022-10-25] MEDS ORDERED: MOXIFLOXACIN OPHTH SOLN 5 MG/ML 0.3 ML SYRINGE OP ONE (08:30)
[2022-10-25] MEDS ORDERED: TIMOLOL 0.5% (CATARACTS) 0.3 ML BTL OU PRN (08:30)
[2022-10-25] MEDS: TETRACAINE 0.5% OPHTH SOLN 4 ML BTL (SINGLE DOSE ONLY) OU PRN ×4 (08:39→08:56)
[2022-10-25 08:44] VITALS: BP 170/91
[2022-10-25] MEDS: TROPICAMIDE 1% OPH SOLN (MYDRIACYL) 15 ML BTL OP SCH ×3 (08:48→08:57)
[2022-10-25] MEDS: PHENYLEPHRINE 10% OPHTH (NEO-SYN) 5 ML BTL OU SCH ×3 (08:49→08:57)
--- NOTE | 2022-10-25 08:59 | Ophthalmologist Pre-Op Note ---
Pre-Operative Progress Note H&P Reviewed The H&P was reviewed, patient examined and no changes noted. Date H&P Reviewed: Oct 25, 2022 Time H&P Reviewed: 08:59 Pre-Op Dx Cataract, Right Eye CHANCE MENDEZ MD Oct 25, 2022 08:59
[2022-10-25] MEDS ORDERED: MIDAZOLAM 2 MG/2 ML (VERSED) VIAL ONE (09:04)
--- NOTE | 2022-10-25 09:27 | Ophthalmology Operative Report ---
Cataract removal/placement IOL PREOPERATIVE DIAGNOSIS: Cataract Right Eye POSTOPERATIVE DIAGNOSIS: Cataract Right Eye PROCEDURE: Cataract removal and placement of posterior chamber implant, right eye SURGEON: Addy Mendez ANESTHESIA: Topical with sedation COMPLICATIONS: None ESTIMATED BLOOD LOSS: Minimal DESCRIPTION OF PROCEDURE: After proper informed consent was obtained, the patient, a 52 female, was taken to the Operating Room and the right eye was anesthetized with tetracaine. The right eye was then prepped and draped in the usual manner. A wire lid speculum was placed. A paracentesis was made at the left hand position. Preservative free lidocaine was injected into the anterior chamber followed by viscoelastic. A clear corneal incision was made in the temporal position. A capsulorrhexis was preformed and the central nuclear and cortical material were removed. The posterior capsule was polished and Fili 22.5 AU00T0 IOL was placed into the capsular bag. The residual viscoelastic was aspirated and balanced saline solution was injected into the anterior chamber. Moxifloxacin was injected into the anterior chamber. The wound was checked and found to be water tight. The patient tolerated the procedure well without complications. ADDY MENDEZ MD Oct 25, 2022 09:27
[2022-10-25 09:31] VITALS: BP 199/106
--- NOTE | 2022-10-25 12:04 | Anesthesia-General Post-Op ---
MAC Patient Condition Mental Status/LOC: Same as Preop Cardiovascular: Satisfactory Nausea/Vomiting: Absent Respiratory: Satisfactory Pain: Controlled Complications: Absent Post Op Complications Complications None Follow Up Care/Instructions Patient Instructions None needed. Anesthesiology Discharge Order Discharge Order Patient was doing well this morning after the procedure with no complaints, stable vital signs, no apparent adverse anesthesia problems. No complications reported per nursing. BARRETT CAPPS DO Oct 25, 2022 12:04
== END 2022-10-25 09:33 | disposition home or self-care (01) ==
LOC: SDC 08:20
PROVIDERS: ATTEND Specialist
DX: H25.9 Unspecified age-related cataract (principal); E11.36 Type 2 diabetes mellitus with diabetic cataract; Z79.4 Long term (current) use of insulin; Z79.84 Long term (current) use of oral hypoglycemic drugs; Z79.85 Long-term (current) use of injectable non-insulin antidiabetic drugs
CPT/HCPCS: 66984; V2632

== ENCOUNTER 2022-11-21 05:37 | Outpatient (CLI) | payer MEDICARE, MEDICAID | END 2022-11-21 14:20 | disposition home or self-care (01) | LOC: PREOP 05:37 | PROVIDERS: ATTEND Specialist | DX: Z01.818 Encounter for other preprocedural examination (principal); H25.12 Age-related nuclear cataract, left eye ==

== ENCOUNTER 2022-11-29 08:46 | Day surgery (SDC) | payer MEDICARE, MEDICAID ==
[~2022-11-29] VITALS: Ht 162.5 cm; Wt 97.3 kg
[2022-11-29] MEDS: TETRACAINE 0.5% OPHTH SOLN 4 ML BTL (SINGLE DOSE ONLY) OU PRN ×4 (08:57→09:16)
[2022-11-29] MEDS ORDERED: MIDAZOLAM 2 MG/2 ML (VERSED) VIAL ONE (08:59)
[2022-11-29] MEDS ORDERED: MOXIFLOXACIN OPHTH SOLN 5 MG/ML 0.3 ML SYRINGE OP ONE (09:00)
[2022-11-29] MEDS ORDERED: TIMOLOL 0.5% (CATARACTS) 0.3 ML BTL OU PRN (09:00)
[2022-11-29] MEDS ORDERED: POVIDONE (BETADINE) OPHTH SOLN 5% 30 ML OP ONE (09:00)
[2022-11-29] MEDS: PHENYLEPHRINE 10% OPHTH (NEO-SYN) 5 ML BTL OU SCH ×3 (09:06→09:16)
[2022-11-29] MEDS: TROPICAMIDE 1% OPH SOLN (MYDRIACYL) 15 ML BTL OP SCH ×3 (09:06→09:16)
[2022-11-29 09:08] VITALS: BP 147/93
--- NOTE | 2022-11-29 09:47 | Ophthalmologist Pre-Op Note ---
Pre-Operative Progress Note H&P Reviewed The H&P was reviewed, patient examined and no changes noted. Date H&P Reviewed: Nov 29, 2022 Time H&P Reviewed: 09:47 Pre-Op Dx Cataract, Left Eye CHANCE MENDEZ MD Nov 29, 2022 09:47
--- NOTE | 2022-11-29 10:11 | Ophthalmology Operative Report ---
Cataract removal/placement IOL PREOPERATIVE DIAGNOSIS: Cataract Left Eye POSTOPERATIVE DIAGNOSIS: Cataract Left Eye PROCEDURE: Cataract removal and placement of posterior chamber implant, left eye SURGEON: Addy Mendez ANESTHESIA: Topical with sedation COMPLICATIONS: None ESTIMATED BLOOD LOSS: Minimal DESCRIPTION OF PROCEDURE: After proper informed consent was obtained, the patient, a 52 female, was taken to the Operating Room and the left eye was anesthetized with tetracaine. The left eye was then prepped and draped in the usual manner. A wire lid speculum was placed. A paracentesis was made at the left hand position. Preservative free lidocaine was injected into the anterior chamber followed by viscoelastic. A clear corneal incision was made in the temporal position. A capsulorrhexis was preformed and the central nuclear and cortical material were removed. The posterior capsule was polished and an Fili 22.5 AU00T0 was placed into the capsular bag. The residual viscoelastic was aspirated and balanced saline solution was injected into the anterior chamber. Moxifloxacin was injected into the anterior chamber. The wound was checked and found to be water tight. The patient tolerated the procedure well without complications. ADDY MENDEZ MD Nov 29, 2022 10:11
[2022-11-29 10:22] VITALS: BP 164/68
--- NOTE | 2022-11-29 13:07 | Anesthesia-General Post-Op ---
MAC Patient Condition Mental Status/LOC: Same as Preop Cardiovascular: Satisfactory Nausea/Vomiting: Absent Respiratory: Satisfactory Pain: Controlled Complications: Absent Post Op Complications Complications None Follow Up Care/Instructions Patient Instructions None needed. Anesthesiology Discharge Order Discharge Order Patient is doing well, no complaints, stable vital signs, no apparent adverse anesthesia problems. No complications reported per nursing. KATRIN BISWAS CRNA Nov 29, 2022 13:07
== END 2022-11-29 10:25 | disposition home or self-care (01) ==
LOC: SDC 08:46
PROVIDERS: ATTEND Specialist
DX: E11.36 Type 2 diabetes mellitus with diabetic cataract (principal); H25.9 Unspecified age-related cataract; Z79.4 Long term (current) use of insulin; Z79.84 Long term (current) use of oral hypoglycemic drugs; Z79.85 Long-term (current) use of injectable non-insulin antidiabetic drugs
CPT/HCPCS: 66984; 82947; V2632